=== PATIENT | female | born 1965 | race Caucasian/White ===

== ENCOUNTER 2023-09-06 09:46 | Outpatient (RCR) | payer MEDICARE, OTHER, SELFPAY ==
[2023-09-06] VITALS (11 sets, daily range): BP systolic 86–107; BP diastolic 47–72; BMI 27.1
[2023-09-06] MEDS: BENADRYL 50.5 MG IV (10:27)
[2023-09-06] MEDS: NSS 250 IV (10:27)
[2023-09-06] MEDS: REMICADE 250 MG IV (11:00)
[2023-09-06 11:13] LABS: % Basophils 0.8 % (0-2); % Immature Granulocytes 0.3 % (0-0.5); % Monocytes 6.3 % (1.7-9.3); % Neutrophils 64.6 % (42.2-75.2); Absolute Basophils 0.1 10^3/uL (0-0.2); Absolute Eosinophils 0.2 10^3/uL (0-0.7); Absolute Lymphocytes 1.8 10^3/uL (1.2-3.4); Absolute Monocytes 0.5 10^3/uL (0.1-0.6); Absolute Neutrophils 4.6 10^3/uL (1.4-6.5); Hematocrit 35.1 % (37.0-47.0); Hemoglobin 11.8 g/dL (12.0-16.0); Mean Corp Hgb Conc. 33.6 g/dL (33.0-37.0); Mean Corpuscular Hgb 27.8 pg (27.0-31.0); Mean Corpuscular Volume 82.8 fL (81.0-99.0); Mean Platelet Volume 8.7 fL (7.4-10.4); Nucleated Red Blood Cells % 0 %; Platelet Count 347 10^3/uL (130-400); Red Blood Cell Count 4.24 10^6/uL (4.20-5.40); Red Cell Dist. Width 13.4 % (11.5-14.5); White Blood Cell Count 7.1 10^3/uL (4.8-10.8)
[2023-09-06 11:33] LABS: ALT (SGPT) 20 U/L (0-35); AST (SGOT) 36 U/L (14-36); Albumin 4.4 g/dl (3.5-5.0); Alkaline Phosphatase 65 U/L (38-126); Direct Bilirubin 0.1 mg/dl (0.0-0.4); Total Bilirubin 1.9 mg/dl (0.2-1.3); Total Protein 8.2 g/dl (6.3-8.2)
== END 2023-09-07 09:43 | disposition home or self-care (01) ==
LOC: OID 09:46
PROVIDERS: ATTENDING PHYSICIAN Specialist; FAMILY PHYSICIAN Nurse Practitioner Adult Health
DX: K50.813 Crohn's disease of both small and large intestine with fistula (principal); K50.80 Crohn's disease of both small and large intestine without complications
CPT/HCPCS: 36415; 80076; 85025; 96361; 96367; 96413; 96415; J1745

== ENCOUNTER 2023-11-16 11:25 | Outpatient (RCR) | payer MEDICARE, OTHER, SELFPAY ==
[2023-11-16] VITALS (11 sets, daily range): BP systolic 87–108; BP diastolic 54–67; BMI 26.2
[2023-11-16 11:59] LABS: % Basophils 0.4 % (0-2); % Immature Granulocytes 0.1 % (0-0.5); % Lymphocytes 27.2 % (20.5-51.1); % Monocytes 5.8 % (1.7-9.3); % Neutrophils 64.5 % (42.2-75.2); Absolute Eosinophils 0.2 10^3/uL (0-0.7); Absolute Lymphocytes 2.2 10^3/uL (1.2-3.4); Absolute Monocytes 0.5 10^3/uL (0.1-0.6); Absolute Neutrophils 5.2 10^3/uL (1.4-6.5); Hematocrit 36.1 % (37.0-47.0); Hemoglobin 12.1 g/dL (12.0-16.0); Mean Corp Hgb Conc. 33.5 g/dL (33.0-37.0); Mean Corpuscular Hgb 27.9 pg (27.0-31.0); Mean Corpuscular Volume 83.2 fL (81.0-99.0); Mean Platelet Volume 8.5 fL (7.4-10.4); Platelet Count 279 10^3/uL (130-400); Red Blood Cell Count 4.34 10^6/uL (4.20-5.40)
[2023-11-16] MEDS: NSS 250 IV (12:19)
[2023-11-16] MEDS: BENADRYL 50.5 MG IV (12:20)
[2023-11-16] MEDS: REMICADE 250 MG IV (12:54)
[2023-11-16 13:23] LABS: ALT (SGPT) 26 U/L (0-35); AST (SGOT) 29 U/L (14-36); Albumin 4.1 g/dl (3.5-5.0); Alkaline Phosphatase 71 U/L (38-126); Direct Bilirubin 0.4 mg/dl (0.0-0.4); Total Bilirubin 0.7 mg/dl (0.2-1.3); Total Protein 7.5 g/dl (6.3-8.2)
== END 2023-11-17 10:21 | disposition home or self-care (01) ==
LOC: OID 11:25
PROVIDERS: ATTENDING PHYSICIAN Specialist; FAMILY PHYSICIAN Nurse Practitioner Adult Health
DX: K50.813 Crohn's disease of both small and large intestine with fistula (principal); K50.80 Crohn's disease of both small and large intestine without complications
CPT/HCPCS: 36415; 80076; 85025; 96361; 96367; 96413; 96415; J1745

== ENCOUNTER 2023-11-23 08:43 | Emergency (ER) | payer MEDICARE, OTHER, SELFPAY ==
[2023-11-23 08:51] VITALS: BP 113/76
--- NOTE | 2023-11-23 11:28 | ED.GENMED ---
History of Present Illness
General
Chief Complaint: Musculo-Skeletal Complaint
Exam Limitations: none
Time Seen by Provider: 11/23/23 11:26
Nursing documentation reviewed up to this point in time: agreed with
Travel History
Have you had any contact with someone who has COVID-19?: No
Do you have any symptoms of coronavirus? Fever > 100 degrees, chills, cough, shortness of breath, sore throat, loss of taste or smell, muscle aches, or headache?: No
History of Present Illness
History of Present Illness:
58-year-old female with a past medical history
Past History
Past History
ED Past Medical History: Cancer (Thyroid CA), Hypothyroidism (Due to Thyroidectomy for CA), Other (Crohn's disease, kidney stones) and Other ( bicuspid aortic valve); Negative Asthma, HTN, Hypercholesterolemia or NIDDM
ED Past Surgical History: Cholecystectomy, and Other (ileostomy)
Social History
Tobacco: Non-smoker
Alcohol: None
Personal:
Living: with family
Employment: Employed
Family History
Family History: Diabetes and Hypertension
Review of Systems
Review of Systems
All Other Systems: ROS reviewed and negative except as documented in HPI and ROS
Course
Orders/Labs/Results
Orders:
Orders
11/23/23 08:57
Electrocardiogram (*1) Urgent
Reason for Study: Other
Other Reason for Exam: left shouder pain
11/23/23 08:58
EKG- Treatment ONCE
Vital Signs
Initial and Last Documented VS:
Initial Vital Signs
Temp Pulse Resp BP Pulse Ox
97.8 F 99 18 113/76 95
11/23/23 08:51 11/23/23 08:51 11/23/23 08:51 11/23/23 08:51 11/23/23 08:51
Last Documented Vital Signs
Temp Pulse Resp BP Pulse Ox
97.8 F 99 18 113/76 95
11/23/23 08:51 11/23/23 08:51 11/23/23 08:51 11/23/23 08:51 11/23/23 08:51
ED Attending Note
-
Portions of this chart may have been created with voice recognition software.� Occasional wrong word or��sound alike� substitutions may have occurred due to the inherent limitations of voice recognition software.
Discharge Plan
Departure
Prescriptions:
No Action
infliximab [Remicade] 100 MG/10 ML recon soln
500 mg IV .[id number]
Patient Comments:
RECEIVES IN [facility]
cyanocobalamin (vitamin B-12) [Vitamin B-12] 2,500 MCG tablet, sublingual
2,500 mcg sublingual DAILY
cholecalciferol (vitamin D3) 1,000 UNITS tablet
3,000 units PO DAILY
calcium phosphate-vitamin D3 1 EACH tablet,chewable
2 ea PO DAILY
sertraline 50 MG tablet
75 mg PO NOON
triamcinolone acetonide 16.5 GM aerosol,spray
147 gm SPRAY DAILY
Patient Comments:
On 14 days-then off 14 days to ostomy site
miconazole nitrate [Miconazorb AF] 2 % Powder
1 applic TOPICAL DAILY
ferrous sulfate [iron] 325 mg (65 mg iron) Tablet
325 mg PO DAILY
levothyroxine [Synthroid] 88 mcg Tablet
88 mcg PO DAILY
Patient Comments:
Brand only
Interventions
Interventions:
*ED COVID-19 Vaccine History Last Done: 11/23/23 08:52
Discharge Date and Time
Print Language: LAO
== END 2023-11-23 11:44 ==
LOC: EMR 08:43
PROVIDERS: EMERGENCY PHYSICIAN Emergency Medicine
DX: M25.512 Pain in left shoulder (principal); Z53.21 Procedure and treatment not carried out due to patient leaving prior to being seen by health care provider
CPT/HCPCS: 93005

== ENCOUNTER → 2023-12-27 14:33 | Outpatient (REF) | payer MEDICARE, OTHER, SELFPAY | LOC: HWRAD 14:33 | PROVIDERS: ATTENDING PHYSICIAN Internal Medicine Critical Care Medicine; FAMILY PHYSICIAN Nurse Practitioner Adult Health | DX: R06.02 Shortness of breath (principal) | CPT/HCPCS: 71046 ==

== ENCOUNTER → 2024-01-05 13:30 | Outpatient (REF) | payer MEDICARE, OTHER, SELFPAY | LOC: HWRAD 13:30 | PROVIDERS: ATTENDING PHYSICIAN Internal Medicine Critical Care Medicine; FAMILY PHYSICIAN Nurse Practitioner Adult Health | DX: R91.8 Other nonspecific abnormal finding of lung field (principal); R06.02 Shortness of breath; Z86.16 Personal history of COVID-19 | CPT/HCPCS: 71250 ==

== ENCOUNTER 2024-01-17 09:50 | Outpatient (RCR) | payer MEDICARE, OTHER, SELFPAY ==
[2024-01-17] VITALS (10 sets, daily range): BP systolic 64–115; BP diastolic 50–73
[2024-01-17] MEDS: NSS 250 IV (10:52)
[2024-01-17] MEDS: BENADRYL 50.5 MG IV (10:53)
[2024-01-17] MEDS: REMICADE 250 MG IV (11:36)
[2024-01-17 11:58] LABS: % Basophils 0.9 % (0-2); % Immature Granulocytes 0.2 % (0-0.5); % Lymphocytes 23.7 % (20.5-51.1); % Monocytes 6.4 % (1.7-9.3); % Neutrophils 62.8 % (42.2-75.2); Absolute Basophils 0.1 10^3/uL (0-0.2); Absolute Eosinophils 0.4 10^3/uL (0-0.7); Absolute Lymphocytes 1.6 10^3/uL (1.2-3.4); Absolute Monocytes 0.4 10^3/uL (0.1-0.6); Absolute Neutrophils 4.1 10^3/uL (1.4-6.5); Hematocrit 33.2 % (37.0-47.0); Hemoglobin 11.2 g/dL (12.0-16.0); Mean Corp Hgb Conc. 33.7 g/dL (33.0-37.0); Mean Corpuscular Hgb 28.1 pg (27.0-31.0); Mean Corpuscular Volume 83.2 fL (81.0-99.0); Mean Platelet Volume 10.2 fL (7.4-10.4); Nucleated Red Blood Cells % 0 %; Platelet Count 281 10^3/uL (130-400); Red Blood Cell Count 3.99 10^6/uL (4.20-5.40); Red Cell Dist. Width 14.2 % (11.5-14.5); White Blood Cell Count 6.5 10^3/uL (4.8-10.8)
[2024-01-17 12:11] LABS: ALT (SGPT) 19 U/L (0-35); AST (SGOT) 34 U/L (14-36); Albumin 4.4 g/dl (3.5-5.0); Alkaline Phosphatase 58 U/L (38-126); Direct Bilirubin 0.3 mg/dl (0.0-0.4); Total Bilirubin 1.5 mg/dl (0.2-1.3); Total Protein 7.5 g/dl (6.3-8.2)
== END 2024-01-18 08:35 | disposition home or self-care (01) ==
LOC: OID 09:50
PROVIDERS: ATTENDING PHYSICIAN Specialist; FAMILY PHYSICIAN Nurse Practitioner Adult Health
DX: K50.813 Crohn's disease of both small and large intestine with fistula (principal)
CPT/HCPCS: 36415; 80076; 85025; 96367; 96413; 96415; J1745

== ENCOUNTER 2024-03-13 09:46 | Outpatient (RCR) | payer MEDICARE, OTHER, SELFPAY ==
[2024-03-13] VITALS (10 sets, daily range): BP systolic 81–103; BP diastolic 52–63
[2024-03-13] MEDS: NSS 250 IV (10:19)
[2024-03-13] MEDS: BENADRYL 50.5 MG IV (10:19)
[2024-03-13] MEDS: REMICADE 250 MG IV (10:52)
== END 2024-03-14 08:55 | disposition home or self-care (01) ==
LOC: OID 09:46
PROVIDERS: ATTENDING PHYSICIAN Specialist; FAMILY PHYSICIAN Nurse Practitioner Adult Health
DX: K50.813 Crohn's disease of both small and large intestine with fistula (principal); K50.80 Crohn's disease of both small and large intestine without complications
CPT/HCPCS: 96367; 96413; 96415; J1745

== ENCOUNTER → 2024-04-04 12:42 | Outpatient (REF) | payer MEDICARE, OTHER, SELFPAY | LOC: HWWDC 12:42 | PROVIDERS: ATTENDING PHYSICIAN Obstetrics & Gynecology Gynecology; FAMILY PHYSICIAN Nurse Practitioner Adult Health | DX: Z12.31 Encounter for screening mammogram for malignant neoplasm of breast (principal) | CPT/HCPCS: 77063; 77067 ==

== ENCOUNTER 2024-05-08 09:55 | Outpatient (RCR) | payer MEDICARE, OTHER, SELFPAY ==
[2024-05-08] VITALS (10 sets, daily range): BP systolic 87–108; BP diastolic 54–70
[2024-05-08] MEDS: BENADRYL 50.5 MG IV (10:32)
[2024-05-08] MEDS: NSS 250 IV (10:33)
[2024-05-08] MEDS: REMICADE 250 MG IV (10:59)
[2024-05-08 11:08] LABS: % Basophils 0.6 % (0-2); % Immature Granulocytes 0.2 % (0-0.5); % Lymphocytes 20.4 % (20.5-51.1); % Monocytes 5.5 % (1.7-9.3); % Neutrophils 70.3 % (42.2-75.2); Absolute Basophils 0.1 10^3/uL (0-0.2); Absolute Eosinophils 0.3 10^3/uL (0-0.7); Absolute Lymphocytes 2.1 10^3/uL (1.2-3.4); Absolute Monocytes 0.6 10^3/uL (0.1-0.6); Absolute Neutrophils 7.1 10^3/uL (1.4-6.5); Hematocrit 37.1 % (37.0-47.0); Hemoglobin 12.7 g/dL (12.0-16.0); Mean Corp Hgb Conc. 34.2 g/dL (33.0-37.0); Mean Corpuscular Hgb 29.1 pg (27.0-31.0); Mean Corpuscular Volume 84.9 fL (81.0-99.0); Mean Platelet Volume 8.5 fL (7.4-10.4); Nucleated Red Blood Cells % 0 %; Platelet Count 310 10^3/uL (130-400); Red Blood Cell Count 4.37 10^6/uL (4.20-5.40); Red Cell Dist. Width 13.2 % (11.5-14.5); White Blood Cell Count 10.1 10^3/uL (4.8-10.8)
[2024-05-08 11:23] LABS: ALT (SGPT) 18 U/L (0-35); AST (SGOT) 24 U/L (14-36); Albumin 4.8 g/dl (3.5-5.0); Alkaline Phosphatase 76 U/L (38-126); Direct Bilirubin 0.2 mg/dl (0.0-0.4); Total Bilirubin 1.1 mg/dl (0.2-1.3); Total Protein 8.2 g/dl (6.3-8.2)
== END 2024-05-09 08:40 | disposition home or self-care (01) ==
LOC: OID 09:55
PROVIDERS: ATTENDING PHYSICIAN Internal Medicine Gastroenterology; FAMILY PHYSICIAN Nurse Practitioner Adult Health
DX: K50.813 Crohn's disease of both small and large intestine with fistula (principal); K50.80 Crohn's disease of both small and large intestine without complications
CPT/HCPCS: 80076; 85025; 96365; 96366; 96367; J1745

== ENCOUNTER 2024-07-03 09:56 | Outpatient (RCR) | payer MEDICARE, OTHER, SELFPAY ==
[2024-07-03] VITALS (11 sets, daily range): BP systolic 84–100; BP diastolic 49–62
[2024-07-03] MEDS: NSS 250 IV (10:31)
[2024-07-03] MEDS: BENADRYL 50.5 MG IV (10:32)
[2024-07-03] MEDS: REMICADE 250 MG IV (11:01)
== END 2024-07-04 13:40 | disposition home or self-care (01) ==
LOC: OID 09:56
PROVIDERS: ATTENDING PHYSICIAN Internal Medicine Gastroenterology; FAMILY PHYSICIAN Nurse Practitioner Adult Health
DX: K50.813 Crohn's disease of both small and large intestine with fistula (principal)
CPT/HCPCS: 96367; 96413; 96415; J1745

== ENCOUNTER → 2024-08-03 09:12 | Outpatient (REF) | payer MEDICARE, OTHER, SELFPAY | LOC: DHSLP 09:12 | PROVIDERS: ATTENDING PHYSICIAN Internal Medicine; FAMILY PHYSICIAN Nurse Practitioner Adult Health | DX: G47.19 Other hypersomnia (principal); R06.83 Snoring | CPT/HCPCS: 95810 ==

== ENCOUNTER 2024-08-31 09:14 | Outpatient (RCR) | payer MEDICARE, OTHER, SELFPAY ==
[2024-08-31] VITALS (10 sets, daily range): BP systolic 82–104; BP diastolic 45–81
[2024-08-31] MEDS: NSS 250 IV (09:45)
[2024-08-31] MEDS: BENADRYL 50.5 MG IV (09:51)
[2024-08-31] MEDS: REMICADE 250 MG IV (10:10)
[2024-08-31 10:16] LABS: % Basophils 0.7 % (0-2); % Eosinophils 3.3 % (0-6); % Immature Granulocytes 0.3 % (0-0.5); % Monocytes 6.7 % (1.7-9.3); Absolute Basophils 0.1 10^3/uL (0-0.2); Absolute Eosinophils 0.2 10^3/uL (0-0.7); Absolute Lymphocytes 2.1 10^3/uL (1.2-3.4); Absolute Monocytes 0.5 10^3/uL (0.1-0.6); Hematocrit 34.4 % (37.0-47.0); Hemoglobin 11.6 g/dL (12.0-16.0); Mean Corp Hgb Conc. 33.7 g/dL (33.0-37.0); Mean Corpuscular Hgb 29.3 pg (27.0-31.0); Mean Corpuscular Volume 86.9 fL (81.0-99.0); Mean Platelet Volume 8.9 fL (7.4-10.4); Nucleated Red Blood Cells % 0 %; Platelet Count 254 10^3/uL (130-400); Red Blood Cell Count 3.96 10^6/uL (4.20-5.40); Red Cell Dist. Width 12.3 % (11.5-14.5); White Blood Cell Count 6.9 10^3/uL (4.8-10.8)
[2024-09-02 10:21] LABS: Quantiferon Mitogen minus NIL 9.96 IU/mL; Quantiferon NIL 0.04 IU/mL; Quantiferon Plus TB1 minus NIL 0.01 IU/mL (<=0.34); Quantiferon Plus TB2 minus NIL 0.01 IU/mL (<=0.34); Quantiferon TB Gold Plus Negative (Negative)
== END 2024-09-01 08:20 | disposition home or self-care (01) ==
LOC: OID 09:14
PROVIDERS: ATTENDING PHYSICIAN Internal Medicine Gastroenterology; FAMILY PHYSICIAN Nurse Practitioner Adult Health
DX: K50.813 Crohn's disease of both small and large intestine with fistula (principal)
CPT/HCPCS: 85025; 86480; 96365; 96367; J1745

== ENCOUNTER 2024-10-23 09:56 | Outpatient (RCR) | payer MEDICARE, OTHER, SELFPAY ==
[2024-10-23] VITALS (11 sets, daily range): BP systolic 83–99; BP diastolic 37–61
[2024-10-23] MEDS: BENADRYL 50.5 MG IV (10:54)
[2024-10-23] MEDS: NSS 250 IV (10:54)
[2024-10-23 11:03] LABS: % Basophils 0.6 % (0-2); % Eosinophils 3.6 % (0-6); % Immature Granulocytes 0.1 % (0-0.5); % Lymphocytes 24.9 % (20.5-51.1); % Monocytes 5.2 % (1.7-9.3); % Neutrophils 65.6 % (42.2-75.2); Absolute Basophils 0.1 10^3/uL (0-0.2); Absolute Eosinophils 0.3 10^3/uL (0-0.7); Absolute Monocytes 0.4 10^3/uL (0.1-0.6); Absolute Neutrophils 5.3 10^3/uL (1.4-6.5); Hematocrit 33.4 % (37.0-47.0); Hemoglobin 11.3 g/dL (12.0-16.0); Mean Corp Hgb Conc. 33.8 g/dL (33.0-37.0); Mean Corpuscular Hgb 28.7 pg (27.0-31.0); Mean Corpuscular Volume 84.8 fL (81.0-99.0); Mean Platelet Volume 8.4 fL (7.4-10.4); Platelet Count 276 10^3/uL (130-400); Red Blood Cell Count 3.94 10^6/uL (4.20-5.40); Red Cell Dist. Width 12.1 % (11.5-14.5); White Blood Cell Count 8.1 10^3/uL (4.8-10.8)
[2024-10-23] MEDS: REMICADE 250 MG IV (11:20)
[2024-10-23 11:47] LABS: ALT (SGPT) 14 U/L (0-35); AST (SGOT) 21 U/L (14-36); Albumin 3.7 g/dl (3.5-5.0); Alkaline Phosphatase 47 U/L (38-126); Direct Bilirubin 0.3 mg/dl (0.0-0.4); Total Bilirubin 1.4 mg/dl (0.2-1.3)
== END 2024-10-24 09:35 | disposition home or self-care (01) ==
LOC: OID 09:56
PROVIDERS: ATTENDING PHYSICIAN Internal Medicine Gastroenterology; FAMILY PHYSICIAN Nurse Practitioner Adult Health
DX: K50.813 Crohn's disease of both small and large intestine with fistula (principal); D50.0 Iron deficiency anemia secondary to blood loss (chronic); R77.9 Abnormality of plasma protein, unspecified
CPT/HCPCS: 36415; 80076; 85025; 96367; 96413; 96415; J1745

== ENCOUNTER 2024-12-18 09:51 | Outpatient (RCR) | payer MEDICARE, OTHER, SELFPAY ==
[2024-12-18] VITALS (11 sets, daily range): BP systolic 86–115; BP diastolic 54–72
[2024-12-18] MEDS: NSS 250 IV (10:28)
[2024-12-18 10:30] LABS: Hematocrit 33.7 % (37.0-47.0); Hemoglobin 11.4 g/dL (12.0-16.0); Mean Corp Hgb Conc. 33.8 g/dL (33.0-37.0); Mean Corpuscular Hgb 28.4 pg (27.0-31.0); Mean Corpuscular Volume 83.8 fL (81.0-99.0); Mean Platelet Volume 8.2 fL (7.4-10.4); Platelet Count 320 10^3/uL (130-400); Red Blood Cell Count 4.02 10^6/uL (4.20-5.40); White Blood Cell Count 9.6 10^3/uL (4.8-10.8)
[2024-12-18] MEDS: BENADRYL 50.5 MG IV (10:33)
[2024-12-18] MEDS: REMICADE 250 MG IV (11:00)
[2024-12-18 11:29] LABS: ALT (SGPT) 16 U/L (0-35); AST (SGOT) 20 U/L (14-36); Albumin 4.2 g/dl (3.5-5.0); Alkaline Phosphatase 77 U/L (38-126); Direct Bilirubin 0.4 mg/dl (0.0-0.4); Total Bilirubin 0.9 mg/dl (0.2-1.3); Total Protein 7.3 g/dl (6.3-8.2)
== END 2024-12-18 15:35 | disposition home or self-care (01) ==
LOC: OID 09:51
PROVIDERS: ATTENDING PHYSICIAN Internal Medicine Gastroenterology; FAMILY PHYSICIAN Nurse Practitioner Adult Health
DX: K50.813 Crohn's disease of both small and large intestine with fistula (principal)
CPT/HCPCS: 80076; 85027; 96365; 96366; 96367; J1745

== ENCOUNTER → 2025-01-23 13:43 | Outpatient (REF) | payer MEDICARE, OTHER, SELFPAY | LOC: HWRCS 13:43 | PROVIDERS: ATTENDING PHYSICIAN Internal Medicine Cardiovascular Disease; FAMILY PHYSICIAN Nurse Practitioner Adult Health | DX: I35.0 Nonrheumatic aortic (valve) stenosis (principal) | CPT/HCPCS: 93306 ==

== ENCOUNTER 2025-02-12 09:57 | Outpatient (RCR) | payer MEDICARE, OTHER, SELFPAY ==
[2025-02-12] VITALS (11 sets, daily range): BP systolic 75–99; BP diastolic 45–56
[2025-02-12] MEDS: NSS 250 IV (10:53)
[2025-02-12] MEDS: BENADRYL 50.5 MG IV (10:54)
[2025-02-12 11:10] LABS: Hematocrit 36.5 % (37.0-47.0); Hemoglobin 12.4 g/dL (12.0-16.0); Mean Corp Hgb Conc. 34.0 g/dL (33.0-37.0); Mean Corpuscular Volume 83.0 fL (81.0-99.0); Nucleated Red Blood Cells % 0 %; Platelet Count 302 10^3/uL (130-400); Red Cell Dist. Width 12.9 % (11.5-14.5)
[2025-02-12] MEDS: REMICADE 250 MG IV (11:25)
[2025-02-12 11:31] LABS: Blood Urea Nitrogen 56 mg/dl (7-17); Calcium 9.9 mg/dl (8.4-10.2); Carbon Dioxide 26 mmol/L (22-30); Chloride 98 mmol/L (98-107); Glucose 104 mg/dl (70-99); Iron 103 ug/dl (37-170); Potassium 3.4 mmol/L (3.5-5.1); Sodium 134 mmol/L (135-145); eGFR 30.23
[2025-02-12 11:32] LABS: ALT (SGPT) 20 U/L (0-35); AST (SGOT) 27 U/L (14-36); Albumin 4.9 g/dl (3.5-5.0); Alkaline Phosphatase 67 U/L (38-126); Total Protein 8.6 g/dl (6.3-8.2)
[2025-02-12 11:33] LABS: C-Reactive Protein < 5.00 mg/L (0.0-10.00)
[2025-02-12 11:41] LABS: Total Iron Binding Capacity 482 ug/dl (265-497)
[2025-02-12 12:10] LABS: Ferritin 72.1 ng/ml (11.1-264.0)
[2025-02-12 12:41] LABS: Folate 8.7 ng/ml (2.76-20); Vitamin B12 824 pg/ml (239-931)
== END 2025-02-13 09:48 | disposition home or self-care (01) ==
LOC: OID 09:57
PROVIDERS: ATTENDING PHYSICIAN Internal Medicine Gastroenterology; FAMILY PHYSICIAN Nurse Practitioner Adult Health
DX: K50.813 Crohn's disease of both small and large intestine with fistula (principal); D50.0 Iron deficiency anemia secondary to blood loss (chronic)
CPT/HCPCS: 36415; 80048; 80076; 82607; 82728; 82746; 83540; 83550; 85025; 86140; 96367; 96413; 96415; J1745

== ENCOUNTER → 2025-04-05 11:06 | Outpatient (REF) | payer MEDICARE, OTHER, SELFPAY | LOC: HWWDC 11:06 | PROVIDERS: ATTENDING PHYSICIAN Obstetrics & Gynecology Gynecology; FAMILY PHYSICIAN Nurse Practitioner Adult Health | DX: Z12.31 Encounter for screening mammogram for malignant neoplasm of breast (principal) | CPT/HCPCS: 77063; 77067 ==

== ENCOUNTER 2025-04-09 09:52 | Outpatient (RCR) | payer MEDICARE, OTHER, SELFPAY ==
[2025-04-09] VITALS (10 sets, daily range): BP systolic 77–113; BP diastolic 48–65
[2025-04-09] MEDS: NSS 250 IV (10:56)
[2025-04-09] MEDS: BENADRYL 50.5 MG IV (10:56)
[2025-04-09 11:02] LABS: Hematocrit 34.0 % (37.0-47.0); Hemoglobin 11.7 g/dL (12.0-16.0); Mean Corp Hgb Conc. 34.4 g/dL (33.0-37.0); Mean Corpuscular Volume 84.8 fL (81.0-99.0); Platelet Count 303 10^3/uL (130-400); Red Cell Dist. Width 12.5 % (11.5-14.5)
[2025-04-09] MEDS: REMICADE 250 MG IV (11:25)
[2025-04-09 11:38] LABS: ALT (SGPT) 18 U/L (0-35); AST (SGOT) 27 U/L (14-36); Albumin 4.3 g/dl (3.5-5.0); Alkaline Phosphatase 53 U/L (38-126); Total Protein 8.0 g/dl (6.3-8.2)
[2025-04-09 11:44] LABS: C-Reactive Protein < 5.00 mg/L (0.0-10.00)
== END 2025-04-20 23:59 | disposition home or self-care (01) ==
LOC: OID 09:52
PROVIDERS: ATTENDING PHYSICIAN Internal Medicine Gastroenterology; FAMILY PHYSICIAN Nurse Practitioner Adult Health
DX: K50.80 Crohn's disease of both small and large intestine without complications (principal)
CPT/HCPCS: 80076; 85025; 86140; 96365; 96366; 96367; J1745

== ENCOUNTER → 2025-04-18 08:27 | Outpatient (REF) | payer MEDICARE, OTHER, SELFPAY | LOC: RAD 08:27 | PROVIDERS: ATTENDING PHYSICIAN Nurse Practitioner Adult Health | DX: Z78.0 Asymptomatic menopausal state (principal) | CPT/HCPCS: 77080 ==

== ENCOUNTER 2025-06-04 09:42 | Outpatient (RCR) | payer MEDICARE, OTHER, SELFPAY ==
[2025-06-04] VITALS (10 sets, daily range): BP systolic 82–105; BP diastolic 49–60
[2025-06-04 10:40] LABS: Hematocrit 36.9 % (37.0-47.0); Hemoglobin 12.3 g/dL (12.0-16.0); Mean Corp Hgb Conc. 33.3 g/dL (33.0-37.0); Mean Corpuscular Volume 87.0 fL (81.0-99.0); Platelet Count 320 10^3/uL (130-400); Red Cell Dist. Width 12.1 % (11.5-14.5)
[2025-06-04] MEDS: NSS 250 IV (10:44)
[2025-06-04] MEDS: BENADRYL 50.5 MG IV (10:45)
[2025-06-04] MEDS: REMICADE 250 MG IV (11:13)
[2025-06-04 12:18] LABS: ALT (SGPT) 17 U/L (0-35); AST (SGOT) 24 U/L (14-36); Albumin 4.6 g/dl (3.5-5.0); Alkaline Phosphatase 69 U/L (38-126); Total Protein 8.3 g/dl (6.3-8.2)
[2025-06-04 12:26] LABS: C-Reactive Protein < 5.00 mg/L (0.0-10.00)
== END 2025-06-05 09:39 | disposition home or self-care (01) ==
LOC: OID 09:42
PROVIDERS: ATTENDING PHYSICIAN Internal Medicine Gastroenterology; FAMILY PHYSICIAN Nurse Practitioner Adult Health
DX: K50.813 Crohn's disease of both small and large intestine with fistula (principal)
CPT/HCPCS: 36415; 80076; 85025; 86140; 96365; 96366; 96367; J1745